=== PATIENT | male | born 1970 | race Caucasian/White ===

== ENCOUNTER 2022-08-30 08:08 | Emergency (ER) | payer OTHER ==
[~2022-08-30] VITALS: Ht 167.7 cm; Wt 113.4 kg
--- NOTE | 2022-08-30 08:31 | ED General ---
General Stated Complaint: NECK AND RT SHOULDER PAIN Source of Information: Patient Exam Limitations: No Limitations History of Present Illness Date Seen by Provider: Aug 30, 2022 Time Seen by Provider: 08:20 Initial Comments 51-year-old male who presents emergency department today for neck pain. Pain is on the right side described as dull throbbing sensation with occasional sharp shooting pains down his right posterior arm. Symptoms present for about 2 weeks and stable. He states there is no obvious aggravating alleviating factors but the pain is definitely worse at night and causing him some difficulty sleeping. No known injury. No fevers or chills. No weakness of his upper extremities bilaterally. Allergies and Home Medications Allergies Coded Allergies: No Known Drug Allergies (Unverified , 05/24/10) Patient Home Medication List Home Medication List Reviewed: Yes Review of Systems Review of Systems Constitutional: no symptoms reported EENTM: no symptoms reported Respiratory: no symptoms reported Cardiovascular: no symptoms reported Gastrointestinal: no symptoms reported Genitourinary: no symptoms reported Musculoskeletal: neck pain Skin: no symptoms reported Psychiatric/Neurological: No Symptoms Reported Hematologic/Lymphatic: No Symptoms Reported Immunological/Allergic: no symptoms reported Past Mnidoyn-Eyvlzz-Lvxpgo Hx Patient Social History Tobacco Use?: No Use of E-Cig and/or Vaping dev: No Substance use?: No Alcohol Use?: No Family Medical History Reviewed Nursing Family Hx No Pertinent Family Hx Physical Exam Vital Signs Capillary Refill : Height, Weight, BMI Height: '" Weight: lbs. oz. kg; BMI Method: General Appearance: No Apparent Distress, WD/WN HEENT: PERRL/EOMI, Normal ENT Inspection, Pharynx Normal Neck: Full Range of Motion, Normal Inspection, Supple, Other (Mild tenderness right lateral neck paraspinal musculature.) Respiratory: Chest Non Tender, Lungs Clear, Normal Breath Sounds, No Accessory Muscle Use, No Respiratory Distress Cardiovascular: Regular Rate, Rhythm, No Murmur, Normal Peripheral Pulses, Other (Hypertension) Gastrointestinal: Normal Bowel Sounds, No Organomegaly, No Pulsatile Mass, Non Tender, Soft Back: Normal Inspection, No CVA Tenderness, No Vertebral Tenderness Extremity: Normal Capillary Refill, Normal Inspection, Normal Range of Motion, Non Tender, No Calf Tenderness Neurologic/Psychiatric: Alert, Oriented x3, No Motor/Sensory Deficits, Normal M ood/Affect, 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 He does have significant hypertension, he is asymptomatic related to this. He has chest pain, visual changes, changes in urine. No headaches. He does not typically see a physician and I suspect that his blood pressures are chronically elevated. Recommend keeping a log of his blood pressures and following up with primary doctor in the next 1 to 2 weeks. Regarding his neck pain, this is likely musculoskeletal in nature with possible pinched nerve. Did endorse that he could have a herniated disc as well. He is relatively asymptomatic at the time of my exam. Given conservative care with stretching exercises, anti-inflammatory medicines and close primary care follow- up. He states understanding. He is discharged home in stable condition. Impression Primary Impression: Cervical muscle strain Qualified Codes: S16.1XXA - Strain of muscle, fascia and tendon at neck ramandeep dias, initial encounter Additional Impression: Elevated blood pressure reading Disposition: HOME, SELF-CARE Condition: Stable Departure-Patient Inst. Referrals: NO,LOCAL PHYSICIAN (PCP/Family) Primary Care Physician Patient Instructions: Muscle Strain (DC), Neck Pain Exercises Add. Discharge Instructions: Perform exercises as recommended in your handout. I recommend you follow-up with the [facility] clinic. Your blood pressure is high today, this is likely always high. I recommend to keep a log of your blood pressures at home daily and take this to your initial doctor's appointment. Regarding your neck, I think this is a muscle strain in the pinched nerve. Please again perform the exercises as discussed. Use anti-inflammatory medicines as needed. Follow-up with primary doctor should it persist despite the exercises. Turn to the emergency department for any severe concerns. Scripts No Active Prescriptions or Reported Meds ARUNADREW Oro DO Aug 30, 2022 08:31
[2022-08-30 08:37] VITALS: BP 209/109
== END 2022-08-30 08:37 | disposition home or self-care (01) ==
LOC: EDUNIT# 08:08 → ER 08:12
DX: S16.1XXA Strain of muscle, fascia and tendon at neck level, initial encounter (principal); I10 Essential (primary) hypertension; X58.XXXA Exposure to other specified factors, initial encounter
CPT/HCPCS: 99281